=== PATIENT | female | born 1955 | race African-American/Black ===

== ENCOUNTER 2016-08-15 12:35 | Emergency (ER) | payer BC ==
[2016-08-15 11:00] LABS: BASOPHILS 0.3 %; BASOPHILS ABSOLUTE 0.02 10/3/uL (0.0-0.16); EOSINOPHILS 3.7 %; EOSINOPHILS ABSOLUTE 0.26 10/3/uL (0.0-0.53); ER CBC TAT 0 Hrs 05 Mins; HEMATOCRIT 37.2 % (36.0-48.0); HEMOGLOBIN 12.6 g/dL (12.0-16.0); IMMATURE GRANULOCYTES 0.1 %; IMMATURE GRANULOCYTES ABSOLUTE 0.01 10/3/uL (0.0-0.11); LYMPHOCYTES 43.2 %; LYMPHOCYTES ABSOLUTE 3.05 10/3/uL (0.67-4.30); MEAN CORPUS HGB CONC 33.9 g/dL (32.0-36.0); MEAN CORPUSCULAR HEMOGLOB 28.4 pg (26.0-34.0); MEAN PLATELET VOLUME 10.3 fL (9.2-13.0); MONOCYTES 10.9 %; MONOCYTES ABSOLUTE 0.77 10/3/uL (0.21-1.20); NEUTROPHILS 41.8 %; NEUTROPHILS ABSOLUTE 2.95 10/3/uL (2.02-8.40); PLATELET COUNT 227 10/3/uL (150-400); RBC DISTRIBUTION WIDTH 13.9 % (12.0-16.0); RED CELL COUNT 4.43 10/6/uL (4.0-5.6); WHITE BLOOD CELLS 7.1 10/3/uL (4.5-10.5)
[2016-08-15 11:02] LABS: MANUAL DIFF NO %
[2016-08-15 11:20] LABS: BUN (BLOOD UREA NITROGEN) 11 MG/DL (6-23); CALCIUM, SERUM 8.7 MG/DL (8.5-10.4); CHEST PAIN PROFILE TAT 0 Hrs 25 Mins; CHLORIDE, SERUM 109 MMOL/L (96-112); CO2 (CARBON DIOXIDE) 25 MMOL/L (24-34); CREATININE 0.74 MG/DL (0.55-1.02); GFR AFRICAN AMERICAN 101 ML/MIN (>=60); GFR NON AFRICAN AMERICAN 87 ML/MIN (>=60); GLUCOSE, SERUM 80 MG/DL (60-99); SODIUM, SERUM 144 MMOL/L (135-148); TROPONIN I <0.02 NG/ML (<0.05)
[2016-08-15 11:21] LABS: POTASSIUM, SERUM 4.3 MMOL/L (3.5-5.3)
[~2016-08-15 12:35] MED LIST: ACET500CAP PO; APRISO0.375 GM PO; C5 PO; CALTRA600D PO; CANASA1SUP PR; DCN100 PO; FLEX PO; LIALDA1.2 GM PO; LOVENOX80 SC; LYRICA75 PO; METHOC750B PO; MOBIC7.5 PO; MULTIPLE VIT PO; NEUR300 PO; NORCO1 TAB PO; PERCOCET1 TA3 PO; PRILOSEC40 MG PO; PROBIOTIC PO; T PO; VICODINTAB PO; VITAMIN D1000 UNI1 PO; VITD PO; ZANAFLEX 4 MG TA4 MG PO; ZANTAC 75 PO
[2016-10-25] MEDS ORDERED: LIALDA1.2 GM PO (12:36)
[2016-10-25] MEDS ORDERED: ULTRAM50 PO (12:36)
== END 2016-08-15 12:42 | disposition home or self-care (01) ==
LOC: ER 12:35
PROVIDERS: Emergency Medicine
DX: M79.661 Pain in right lower leg (principal); R07.9 Chest pain, unspecified; Z79.01 Long term (current) use of anticoagulants; Z79.899 Other long term (current) drug therapy
CPT/HCPCS: 71020; 80048; 83735; 84484; 85025; 93005; 93971; 99285

== ENCOUNTER 2016-10-28 04:44 | Day surgery (SDC) | payer OTHER ==
[~2016-10-28 04:44] MED LIST changes: +ULTRAM50 PO
== END 2016-10-28 09:23 | disposition home or self-care (01) ==
LOC: SDC 04:44
PROVIDERS: Orthopaedic Surgery
PROC: 3E0S3BZ Introduction of Anesthetic Agent into Epidural Space, Percutaneous Approach (ICD-10-PCS; 2016-10-28)
PROC: 3E0S33Z Introduction of Anti-inflammatory into Epidural Space, Percutaneous Approach (ICD-10-PCS; principal; 2016-10-28 07:15)
DX: M54.16 Radiculopathy, lumbar region (principal); M54.5 Low back pain; D64.9 Anemia, unspecified; M19.90 Unspecified osteoarthritis, unspecified site; K21.9 Gastro-esophageal reflux disease without esophagitis; G47.30 Sleep apnea, unspecified; K52.9 Noninfective gastroenteritis and colitis, unspecified; Z90.710 Acquired absence of both cervix and uterus; Z98.51 Tubal ligation status; Z98.890 Other specified postprocedural states; Z87.891 Personal history of nicotine dependence
CPT/HCPCS: J1040; J2250; J3010; Q9967